=== PATIENT | female | born 2000 | race Caucasian/White ===

== ENCOUNTER 2018-04-23 11:44 | Emergency (ER) | payer OTHER ==
--- NOTE | 2018-04-23 12:04 | UC ---
Abdominal Pain Female HPI - HPI Summary HPI Summary: 17 yo female presents with lower abdominal cramping and menstrual bleeding. She tells me that she has been on the same OBC for the last 3 years and has had no issues. She gets menstrual bleeding every month, but usually does not have much discomfort. Early this morning she was awakened by severe lower abdominal discomfort accompanied by the beginnings of her menstrual cycle. She has never had pain this bad before. She took some tylenol and ibuprofen, which helped a little. She denies fever, chills, n/v/d/c, dysuria, flank pain. Last sexually active about 3-4 weeks ago and denies abnormal vaginal discharge. No concern for STIs today. - History of Current Complaint Stated Complaint: ABD PAIN Time Seen by Provider: 04/23/18 12:04 Hx Obtained From: Patient Onset/Duration: Sudden Onset Severity Initially: Severe Severity Currently: Moderate Pain Intensity: 8 Pain Scale Used: 0-10 Numeric Allergies/Adverse Reactions: Allergies Allergy/AdvReac Type Severity Reaction Status Date / Time No Known Allergies Allergy Verified 04/23/18 12:04 Home Medications: Home Medications Acetaminophen [Tylenol] 650 mg PO ONCE PRN 04/23/18 [History Confirmed 04/23/18] Ibuprofen [Advil] 400 mg PO ONCE PRN 04/23/18 [History Confirmed 04/23/18] PMH/Surg Hx/FS Hx/Imm Hx - Additional Past Medical History Additional PMH: None - Surgical History Surgical History: None - Family History Known Family History: Positive: None - Social History Occupation: Student Lives: With Family Alcohol Use: None Substance Use Type: None Smoking Status (MU): Never Smoked Tobacco Review of Systems All Other Systems Reviewed And Are Negative: Yes Constitutional: Positive: Negative Skin: Positive: Negative Respiratory: Positive: Negative Cardiovascular: Positive: Negative Gastrointestinal: Positive: Abdominal Pain Genitourinary: Positive: Negative Motor: Positive: Negative Neurovascular: Positive: Negative Neurological: Positive: Negative Psychological: Positive: Negative Physical Exam - Summary Physical Exam Summary: GENERAL: NAD. WDWN. No pain distress. SKIN: No rashes, sores, lesions, or open wounds. NECK: Supple. Nontender. No lymphadenopathy. CHEST: CTAB. No r/r/w. No accessory muscle use. Breathing comfortably and in no distress. CV: RRR. Without m/r/g. Pulses intact. Cap refill <2seconds ABDOMEN: Soft. Mild TTP along lower abdomen without specific point tenderness. No rebound. No CVA tenderness. Bowel sounds present NEURO: Alert. PSYCH: Age appropriate behavior. Triage Information Reviewed: Yes Vital Signs: Vital Signs: Temp Pulse Resp BP Pulse Ox 98.3 F 76 18 116/71 100 04/23/18 11:59 04/23/18 11:59 04/23/18 11:59 04/23/18 11:59 04/23/18 11:59 Laboratory Tests 04/23/18 04/23/18 12:40 12:43 POC Urine Color Yellow POC Urine Clarity Clear POC Urine pH 7.0 POC Ur Specif [place] 1.020 POC Urine Protein Negative POC Ur Glucose (UA) Negative POC Urine Ketones Negative POC Urine Blood 3+ A POC Urine Nitrite Negative POC Urine Bilirubin Negative POC Urine Urobilinogen 0.2 POC U Leukocyte Esteras Negative POC Ur Test Negative Vital Signs Reviewed: Yes Abd Pain Female Course/Dx - Course Course Of Treatment: Declined pelvic exam. US: IMPRESSION: 1. THERE IS A SMALL AMOUNT OF SIMPLE FLUID WITHIN THE CUL-DE-SAC. THIS MAY BE PHYSIOLOGIC. IN A REPRODUCTIVE AGE FEMALE. 2. NO SONOGRAPHIC FEATURES OF TORSION. PLEASE NOTE THAT PARTIAL OR INTERMITTENT TORSION. MAY BE SONOGRAPHICALLY NORMAL. She was given toradol IM in the clinic with great relief of her discomfort. Suspect menorrhalgia. Advised to apply a warm heating pad to her lower abdomen and will rx for naproxen. Advised to f/u with OBGYN if her symptoms do not improve. - Differential Dx/Diagnosis Provider Diagnosis: Menorrhalgia Discharge - Sign-Out/Discharge Documenting (check all that apply): Patient Departure All imaging exams completed and their final reports reviewed: Yes - Discharge Plan Condition: Stable Disposition: HOME Prescriptions: Naproxen TAB* [Naprosyn 250 mg TAB*] 500 mg PO BID PRN #30 tab PRN Reason: Pain Patient Education Materials: Dysmenorrhea (ED) Referrals: No Primary Care Phys,NOPCP [Primary Care Provider] - Patrice Aldridge MD [Medical Doctor] - If Needed Additional Instructions: If you develop a fever, shortness of breath, chest pain, new or worsening symptoms - please call your PCP or go to the ED. If you continue to have [employer]CHNICIAN related discomfort/bleeding - please follow up with OBGYN at the number below - Billing Disposition and Condition Condition: STABLE Disposition: Home
[2018-04-23] MEDS ORDERED: Ketorolac INJ* 60 MG/2 ML VIAL IM ONE (13:16)
== END 2018-04-23 15:05 | disposition home or self-care (01) ==
LOC: UCEAST 11:44
DX: N92.0 Excessive and frequent menstruation with regular cycle (principal)
CPT/HCPCS: 76830; 81003; 84702; 96372; 99202; G0463; J1885